=== PATIENT | female | born 1980 | race Two or more races ===

== ENCOUNTER 2016-08-31 23:32 | Emergency (ER) | payer MEDICAID, OTHER ==
[~2016-08-31] VITALS: Ht 152.4 cm; Wt 68.5 kg
[2016-09-01 04:36] VITALS: BP 135/87
[2016-09-01] MEDS ORDERED: IBUPROFEN 600 MG TAB PO ONE (04:45)
== END 2016-09-01 04:56 | disposition home or self-care (01) ==
LOC: ER 23:37
DX: S93.402A Sprain of unspecified ligament of left ankle, initial encounter (principal); W10.9XXA Fall (on) (from) unspecified stairs and steps, initial encounter; Y93.89 Activity, other specified; Y99.8 Other external cause status; Y92.89 Other specified places as the place of occurrence of the external cause
CPT/HCPCS: 73610